=== PATIENT | male | born 1950 | race Caucasian/White ===

== ENCOUNTER → 2018-02-14 | Outpatient (CLI) | payer OTHER | LOC: RAD 10:56 | DX: M47.812 Spondylosis without myelopathy or radiculopathy, cervical region (principal); M19.042 Primary osteoarthritis, left hand; M19.041 Primary osteoarthritis, right hand; M06.842 Other specified rheumatoid arthritis, left hand; M06.841 Other specified rheumatoid arthritis, right hand; M45.2 Ankylosing spondylitis of cervical region ==